=== PATIENT | male | born 1955 | race Caucasian/White ===

== ENCOUNTER 2018-01-03 05:37 | Day surgery (SDC) | payer OTHER ==
[~2018-01-03] VITALS: Ht 177.8 cm; Wt 81.6 kg
--- NOTE | ~2018-01-03 | PATH ---
[facility] [place] [address] PATHOLOGY RPT PROCEDURE Name: MARIA ELENA YANCEY Room #: DEP [facility] M.R.#: [id number] Admission: 01/03/18 Date of : 59 Discharge: 01/03/18 Report #: [id number] Path Case #: [id number] [facility] Accession Number: [id number] . 01 Material submitted: . RIGHT URETERAL STONE . 01 Clinical history: . Right ureteral stone . 02 Diagnosis: Outside report received from [facility], [address] [place] [address], [id number], on case [id number], labeled with their number [id number], dated 01/11/2018. . Stone Analysis Report Stone Composition Composition (percent) Calcium Oxalate Monohydrate 84 Calcium Phosphate Carbonate 1 Uric Acid 15 . TOTAL 100 . The stone is submitted in fragmented form with no discernible core. It is brown, montgomery, cream, and orange in color, weighs approximately 90 milligrams and displaces less than 0.1 cc of distilled water. THE CALCULUS IS COMPOSED OF A MIXTURE OF CALCIUM OXALATE MONOHYDRATE (WHEWELLITE), URIC ACID AND CALCIUM PHOSPHATE CARBONATE (CARBONATE-APATITE). . RIGHT URETERAL STONE. THE SPECIMEN WAS ANALYZED BY [employer]. . . Baudilio Olson MD Typing Teacher . A complete copy of the report is on file. . Technical and Professional services for the special studies performed by [facility], [address] [place] [id number]. . ([facility] 01/11/2018) . [facility]/01/11/2018 . 02 Electronically signed: . Nicolas Manriquez MD, Pathologist NPI- [id number] [address] [address] PATHOLOGY RPT PROCEDURE Name: MARIA ELENA YANCEY [facility] [id number] Admission: 01/03/18 Date of : 59 Discharge: 01/03/18 Report #: [id number] Path Case #: [id number] . 01 Gross description: . Received fresh labeled "Maria Elena Yancey, right ureteral stone," are granular, light to dark montgomery calculi ranging in size from 0.2 to 0.6 cm in maximum dimension. The specimen is forwarded to an outside laboratory for further processing. (DAC; 01/04/2018) XDC/XDC . 02 Pathologist provided ICD-10: N20.1 . 02 CPT . 657776 Performed at: [address], [place], [place] [id number] MD Jeffery Moralez MD Phone: [phone] Performed at: 02 [facility] [address], [place], [place] [id number] MD Nicolas Manriquez MD Phone: [phone]
--- NOTE | ~2018-01-03 | O ---
[facility] [place] [address] OPERATIVE REPORT Name: MARIA ELENA YANCEY Room #: DEP [facility]..#: [id number] Admission: 01/03/18 Attend Phys: Angel Trotter MD Discharge: 01/03/18 Date of : 59 Report #: [id number] THIS REPORT FOR: //name// CC: Angel Sanches Abnaty Salvador MD DATE OF SERVICE: 01/03/2018 PREOPERATIVE DIAGNOSES: Right proximal ureteral stone with hydronephrosis, renal insufficiency. POSTOPERATIVE DIAGNOSES: Right proximal ureteral stone with hydronephrosis, renal insufficiency. PROCEDURE: Cystoscopy, right ureteroscopy, holmium laser ablation of right proximal ureteral stone with placement of indwelling right ureteral stent. SURGEON: Angel Trotter M.D. ANESTHESIA: General. INDICATIONS: The patient is a very pleasant 62-year-old gentleman who presented last week to [facility] with acute renal failure. He had a proximal right ureteral stone with an atrophic right kidney. A stent was placed. His creatinine has come down nicely to 1.7. He has been counseled with respect to treatment options and has opted for endoscopic management. Risks, benefits, complications of laser ablation have been discussed. He understands the risk of injury to kidney as well as injury to the adjacent tissues. He understands that open surgery may be required either immediately or delayed and that he could have life-threatening sepsis. He understands I cannot predict all the potential complications. DESCRIPTION OF PROCEDURE: After obtaining informed consent, he was brought to the operating room and general anesthetic was administered. He was prepped and draped in lithotomy position by the operating personnel under Anesthesia supervision. A timeout was performed. Preliminary fluoroscopic images were obtained after administration of IV antibiotics, which revealed the stone to be right at the proximal portion of the stent on the right side. A 21-Latvian ACMI cystoscope was introduced under direct vision. The anterior urethra was normal. Prostatic urethra demonstrated trilobar enlargement with only mild obstruction. Upon entering the bladder, the bladder was smooth walled. No intrinsic mucosal lesions. The stent was seen emanating from the right ureteral orifice. I placed a Glidewire into the right kidney alongside the stent. I grasped the stent and removed it. I then placed a second wire alongside the stent into the left kidney. Over the second wire, I placed a 12/14-Latvian 35 cm ureteral [address] [address] OPERATIVE REPORT Name: MARIA ELENA YANCEY Room #: DEP [facility]..#: [id number] Admission: 01/03/18 Attend Phys: Angel Trotter MD Discharge: 01/03/18 Date of : 59 Report #: [id number] access sheath. I left one wire as a safety wire and then I placed the digital ureteroscope through the lumen of the access sheath. I was able to identify the stone and ablate it into innumerable fragments with the 272 micron holmium laser fiber. The largest fragments were retrieved with a 1.9 Latvian ZeroTip nitinol basket. At the conclusion of the procedure, I could examine the entire kidney. There were no significant fragments whatsoever within the kidney and visually the stone was completely gone. I then withdrew the ureteroscope through the access sheath, I backloaded the safety wire through the cystoscope and placed a 6-Latvian x 28 cm Contour stent into the right kidney. The proximal curl was overlying the kidney and the distal curl was in the bladder. I drained the bladder. I then removed the cystoscope. Position was confirmed fluoroscopically with hard copy imaging. I then withdrew the cystoscope. Digital rectal exam was performed at the end of the procedure. Prostate was grade 1-2 and benign with no induration or nodularity. <ELECTRONICALLY SIGNED> By: Angel Trotter MD 01/12/18 0847 [id number] Angel Tortter MD /nt
[~2018-01-03 05:37] MED LIST: AMOXICILLIN 50500 MG PO; CITRATE OF MAG296 M1 PO; FLOMAX0.4 MG PO; NORCO 5-325 TA1 EACH PO; PAIN & FEVER325 MG PO; PERCOCET PO; PHENAZOPYRIDIN100 M1 PO; POTASSIUM CITR10 ME1 PO; TORADOL 10 MG T10 MG PO; UROCIT-K10 ME1 PO; VITAMIN B-12500 MCG; VITAMIN B122500 MCG PO; VITAMIN D1000 UNI1; VITAMIN D32000 UNIT PO; ZOFRAN ODT4 MG PO
[2018-01-03 12:59] LABS: ALBUMIN 4.6 g/dL (3.4-5.0); CALCIUM 9.7 mg/dL (8.5-10.1); CREATININE 1.7 mg/dL (0.7-1.3); POTASSIUM 3.9 mmol/L (3.5-5.1); TOTAL BILIRUBIN 0.9 mg/dL (<0.1-1.0); TOTAL PROTEIN 8.3 g/dL (6.4-8.2)
[2018-01-03 13:45] VITALS: BP 140/81
[2018-01-03 16:14] VITALS: BP 140/81
== END 2018-01-03 17:00 | disposition home or self-care (01) ==
LOC: OR 05:37 → TBA 05:38 → OR 07:38
PROVIDERS: Specialist
DX: N13.2 Hydronephrosis with renal and ureteral calculous obstruction (principal); Z85.038 Personal history of other malignant neoplasm of large intestine; Z93.2 Ileostomy status; N18.9 Chronic kidney disease, unspecified; Z98.890 Other specified postprocedural states
CPT/HCPCS: 50010; 50101; 50164; 51620; 51767; 53331; 56674; 62110; 62900; 70005

== ENCOUNTER 2018-01-27 21:45 | Inpatient (IN) | payer OTHER ==
[~2018-01-27] VITALS: Ht 177.8 cm; Wt 82.3 kg
--- NOTE | ~2018-01-27 | O ---
[facility] [place] [address] OPERATIVE REPORT Name: MARIA ELENA YANCEY Room #: 459-P ADM IN M.R.#: [id number] Admission: 01/28/18 Attend Phys: Aleksandra Foss MD Discharge: Date of : 59 Report #: [id number] THIS REPORT FOR: //name// CC: Myron Ab Aleksandra Foss PREOPERATIVE DIAGNOSIS: Left distal ureteral stone. POSTOPERATIVE DIAGNOSIS: Left distal ureteral stone. PROCEDURE: Cystoscopy, left ureteroscopy with holmium laser ablation of the left ureteral stone and retrieval of stone fragments. SURGEON: Angel Trotter M.D. ANESTHESIA: General. INDICATIONS: The patient is a very pleasant 62-year-old gentleman with a known left ureteral stone. He became acutely ill and was admitted to the hospital. He has been counseled with respect to treatment options and will undergo endoscopic management. Risk of injury to the kidney as well as sepsis and bleeding are discussed. He understands complications could occur, which may not have been foreseen or discussed. Issues related to stent placement and stent removal were discussed. SURGICAL PROCEDURE: After obtaining informed consent, he was brought to the operating room and general anesthetic was administered. He was prepped and draped in the lithotomy position by the operating personnel under anesthesia supervision. A timeout was performed. A 21-St Lucian ACMI cystoscope was introduced under direct vision. The anterior urethra was normal. Prostatic urethra demonstrated mild prostatic enlargement. The bladder was smooth walled. No intrinsic mucosal lesions. The trigone and ureters were normal in configuration and location. I placed a Glidewire into the left ureter and the wire would only advance a couple of centimeters. I placed an open-ended ureteral catheter over this and I was then able to place a wire through the ureteral catheter into the left renal pelvis. I then dilated the ureteral orifice to 15-St Lucian at 10 atmospheres using the 4 cm balloon. I introduced the 6.9 St Lucian digital ureteroscope into the ureter. There was an impacted stone that I treated with the 365 micron holmium laser fiber. Once the stone was fragmented and was off the ureter wall, I retrieved a number of the fragments with a 1.9 St Lucian 0 tip nitinol basket. I was able to advance the ureteroscope about up to the kidney and within the dilated ureter. There was a lot of edema, however around where the stone was impacted. At the conclusion of the procedure, there were some additional fragments that I lasered to be certain they were all small enough to pass. At this point, there was nothing but dust left in the ureter, which was too small to grasp with a grasper. I backloaded the wire through the cystoscope and placed a 6-St Lucian x 28 cm Contour stent. [address] [address] OPERATIVE REPORT Name: MARIA ELENA YANCEY Room #: 459-P [facility] M.R.#: [id number] Admission: 01/28/18 Attend Phys: Aleksandra Foss MD Discharge: Date of : 59 Report #: [id number] The proximal curl was in the kidney. The distal curl was in the bladder. He was then transferred to the recovery room where he arrived in stable condition. The findings were shared with his . By: 1450 1616 Angel Trotter MD /nt
[2018-01-27 22:09] VITALS: BP 166/78
[2018-01-27 23:07] LABS: ABSOLUTE NEUTROPHILS 6.5 thou/uL (1.4-8.2); BASOPHILS 0.3 % (0.0-2.0); EOSINOPHILS 2.2 % (0.0-3.0); HEMATOCRIT 34.7 % (42.0-52.0); HEMOGLOBIN 12.4 gm/dL (14.0-18.0); MCH 33.3 pg (26.0-34.0); MCHC 35.8 g/dL (28.0-37.0); MCV 92.9 fL (80.0-100.0); MONOCYTES 6.6 % (1.0-8.0); PLATELET COUNT 214 thou/uL (150-400); POLYS 78.9 % (36.0-66.0); RBC 3.74 mil/uL (4.50-6.00); RDW 13.3 % (10.5-14.5); WBC 8.3 thou/uL (4.0-11.0)
[2018-01-27 23:09] LABS: CALCIUM 8.6 mg/dL (8.5-10.1); CREATININE 2.3 mg/dL (0.7-1.3); POTASSIUM 3.9 mmol/L (3.5-5.1)
[2018-01-27 23:16] LABS: URINE COLOR ORANGE
[2018-01-27 23:17] LABS: SSA (PROTEIN CONFIRMATORY) NEGATIVE (Negative); URINE CLARITY CLOUDY; URINE REDUCING SUBSTANCE 0 %
[2018-01-27 23:18] LABS: BACTERIA-REFLEX None Seen /HPF (None Seen); CASTS None Seen /LPF (None Seen); ICTOTEST (BILI CONFIRMATORY) Negative (Negative); MUCUS None Seen strn/LPF (None Seen); SQUAMOUS None Seen /LPF (0-3); URINE RBC None Seen /HPF (0-2); URINE WBC-REFLEX None Seen /HPF (0-5)
[2018-01-27 23:19] LABS: AMORPHOUS URATES Many /LPF (None Seen); CRYSTALS None Seen /LPF (None Seen)
[2018-01-28] MEDS ORDERED: TRAMADOL 50 MG50 MG PO (01:45)
[2018-01-28 01:46] VITALS: BP 155/101
[2018-01-28 02:02] VITALS: BP 155/101
[2018-01-28 02:04] VITALS: BP 165/89
[2018-01-28 08:40] VITALS: BP 158/87
[2018-01-28 16:00] VITALS: BP 133/75
[2018-01-28 19:55] VITALS: BP 141/76
[2018-01-29 04:11] VITALS: BP 141/83
[2018-01-29 07:47] VITALS: BP 159/88
[2018-01-29 08:00] VITALS: BP 159/88
[2018-01-29 11:04] VITALS: BP 159/88
== END 2018-01-29 17:25 | disposition home or self-care (01) | DRG 668 ==
LOC: ER 21:45 → EROBS 01-28 01:31 → 4W 01-28 01:31 → ENTRNSPT 01-29 17:12 → 4W 01-29 17:25
PROVIDERS: Emergency Medicine
PROC: 0TC78ZZ Extirpation of Matter from Left Ureter, Via Natural or Artificial Opening Endoscopic (ICD-10-PCS; principal; 2018-01-29)
PROC: 0T778DZ Dilation of Left Ureter with Intraluminal Device, Via Natural or Artificial Opening Endoscopic (ICD-10-PCS; principal; 2018-01-29)
DX: N13.2 Hydronephrosis with renal and ureteral calculous obstruction (principal); E43 Unspecified severe protein-calorie malnutrition; N17.9 Acute kidney failure, unspecified; N18.3 Chronic kidney disease, stage 3 (moderate); I12.9 Hypertensive chronic kidney disease with stage 1 through stage 4 chronic kidney disease, or unspecified chronic kidney disease; Z87.442 Personal history of urinary calculi; Z85.038 Personal history of other malignant neoplasm of large intestine; Z85.048 Personal history of other malignant neoplasm of rectum, rectosigmoid junction, and anus; Z93.2 Ileostomy status; Z79.899 Other long term (current) drug therapy
CPT/HCPCS: 10047; 50010; 50101; 50164; 51179; 51620; 51767; 56674; 56815; 62110; 62900; 70005

== ENCOUNTER 2018-09-20 05:10 | Emergency (ER) | payer OTHER ==
[~2018-09-20] VITALS: Ht 177.8 cm; Wt 81.7 kg
[~2018-09-20 05:10] MED LIST changes: +TRAMADOL 50 MG50 MG PO
[2018-09-20 05:18] VITALS: BP 135/79
[2018-09-20] MEDS ORDERED: NORCO 5-325 TA1 EACH PO (05:50)
[2018-09-20] MEDS ORDERED: COLCHICINE0.6 MG PO (05:50)
== END 2018-09-20 05:56 | disposition home or self-care (01) ==
LOC: ER 05:10
DX: M10.072 Idiopathic gout, left ankle and foot (principal); N18.3 Chronic kidney disease, stage 3 (moderate)

== ENCOUNTER 2019-07-23 18:31 | Emergency (ER) | payer OTHER ==
[~2019-07-23] VITALS: Ht 177.8 cm; Wt 81.7 kg
[2019-07-23 18:31] VITALS: BP 131/69
[~2019-07-23 18:31] MED LIST changes: +COLCHICINE0.6 MG PO
[2019-07-23 19:03] LABS: URINE BILIRUBIN NEGATIVE (Negative); URINE BLOOD 3+ (Negative); URINE CLARITY CLEAR; URINE COLOR YELLOW; URINE GLUCOSE-RANDOM* NEGATIVE (Negative); URINE KETONES NEGATIVE (Negative); URINE LEUKOCYTES-REFLEX NEGATIVE (Negative); URINE NITRITE-REFLEX NEGATIVE (Negative); URINE PROTEIN (DIPSTICK) NEGATIVE (Negative); URINE SPECIFIC GRAVITY >= 1.030 (1.005-1.035); URINE UROBILINOGEN 0.2 E.U./dl (0.2-1.0)
[2019-07-23 20:03] LABS: CASTS None Seen /LPF (None Seen); SQUAMOUS None Seen /LPF (0-3)
[2019-07-23 20:04] LABS: URIC ACID CRYSTALS 4-10 Moderate /LPF (None Seen); URINE RBC 3-10 Few /HPF (0-2); URINE WBC-REFLEX 0-5 Rare /HPF (0-5)
[2019-07-23 20:05] LABS: BACTERIA-REFLEX 1-9 Few /HPF (None Seen)
== END 2019-07-23 18:35 ==
LOC: LAB 18:31 → ER 18:31 → LAB 18:35
PROVIDERS: Emergency Medicine
DX: Z53.21 Procedure and treatment not carried out due to patient leaving prior to being seen by health care provider (principal)